=== PATIENT | female | born 1990 | race Caucasian/White ===

== ENCOUNTER 2017-06-28 19:10 | Observation (INO) | payer MEDICAID ==
[~2017-06-28] VITALS: Ht 154.9 cm; Wt 72.1 kg
[2017-06-28] MEDS ORDERED: PREN-546 PO (20:34)
[2017-06-28] MEDS ORDERED: VITA1TAB44 PO (20:34)
[2017-06-28] MEDS ORDERED: TERBUTALINE 1 MG/ML VIAL SUBQ ONE (21:15)
[2017-06-28 21:36] VITALS: BP 107/67
[2017-06-28] MEDS ORDERED: TERBUTALINE 1 MG/ML VIAL SUBQ SCH ×2 (23:35→23:40)
== END 2017-06-28 23:40 | disposition home or self-care (01) ==
LOC: MFCC 19:10
PROVIDERS: ADMIT Obstetrics & Gynecology; ATTEND Obstetrics & Gynecology
DX: O26.892 Other specified pregnancy related conditions, second trimester (principal); R10.9 Unspecified abdominal pain; Z3A.24 24 weeks gestation of pregnancy
CPT/HCPCS: 76700; 76805; G0378; J3105; Q0092; J7120